=== PATIENT | female | born 1995 | race Caucasian/White ===

== ENCOUNTER 2016-08-20 09:25 | Inpatient (IN) | payer OTHER ==
[2016-08-20] VITALS (26 sets, daily range): BP systolic 106–140; BP diastolic 62–91
[~2016-08-20] VITALS: Ht 160 cm; Wt 100.0 kg
[2016-08-20] MEDS ORDERED: LACTATED RINGER'S 1000 ML IV STA (09:54)
[2016-08-20] MEDS ORDERED: LR 1,000 ML IV SCH (09:54)
[2016-08-20] MEDS ORDERED: BUTORPHANOL 2 MG/ML INJ (J0595) IV PRN (10:00)
[2016-08-20] MEDS ORDERED: OXYTOCIN DRIP 30 UNITS in APPROPRIATE DILUENT 1 EA IV SCH ×2 (10:00→20:38)
[2016-08-20] MEDS ORDERED: PROMETHAZINE INJ 25 MG/ML VIAL (J2550) IV PRN (10:00)
[2016-08-20 10:13] LABS: MEAN CORPUSCULAR HEMOGLOBIN 28.2 pg (27.0-33.0); MEAN CORPUSCULAR HGB CONC 34.2 g/dl (32.0-36.5); MEAN CORPUSCULAR VOLUME 82.2 fl (80.0-96.0); RED CELL DISTRIBUTION WIDTH 15.2 % (11.5-14.5); WHITE BLOOD COUNT 11.5 K/mm3 (4.0-10.0)
[2016-08-20] MEDS ORDERED: FENTANYL 2MCG/ML ROPIVACAINE 0.2% NACL 250 ML CADD As Ordered ONE (16:29)
[2016-08-20] MEDS ORDERED: IBUPROFEN 800 MG TAB PO PRN (20:30)
[2016-08-20] MEDS ORDERED: DOCUSATE SODIUM 100 MG CAP PO PRN (20:30)
[2016-08-20] MEDS ORDERED: MEASLES,MUMPS,RUBELLA VACCINE INJ (MMR-II) (90707) SC SCH (20:30)
[2016-08-20] MEDS ORDERED: RHOGAM 300 MCG (1500 IU) INJ (J2790) IM SCH (20:30)
[2016-08-20] MEDS ORDERED: DIBUCAINE 1% OINTMENT 30GM TOP PRN (20:30)
[2016-08-20] MEDS ORDERED: ACETAMINOPHEN 500 MG TAB PO PRN (20:30)
[2016-08-20] MEDS ORDERED: MOM 30ML SUSPENSION UDC PO PRN (20:30)
[2016-08-20] MEDS ORDERED: OXYTOCIN 30 UNITS IN 0.9% NaCl 500ML IV BAG (J2590) As Ordered ONE (20:33)
[2016-08-20] MEDS: METHYLERGONOVINE MALEATE 0.2 MG TAB PO SCH (21:00)
[2016-08-21] MEDS: METHYLERGONOVINE MALEATE 0.2 MG TAB PO SCH ×3 (03:58→17:45)
[2016-08-21 06:00] VITALS: BP 118/72
[2016-08-21] MEDS: PRENATAL VITAMIN TAB PO SCH (07:56)
--- NOTE | 2016-08-21 09:05 | HPE ---
DATE OF ADMISSION: 08/20/2016 20-year-old, 1, estimated date of delivery 08/19/2016 here at 40 weeks 1 day with reports of spontaneous rupture of membranes, clear fluid 0730 hours. Reports onset uterine cramping since. Denies bleeding. Fetus is active. Last normal menstrual period was unknown, thought to be 10/29/2015 for initial CELESTINA of 08/04/2016. She conceived when Depo-Provera injection was delayed. Sonogram at 8 weeks confirmed the date of 08/19/2016 and anatomy scan was within normal limits. ALLERGIES: She has no known drug allergies. MEDICAL AND SURGICAL: Noncontributory. FAMILY HISTORY: Cancer and diabetes. SOCIAL HISTORY: Single. Father of the baby and family supportive. Denies tobacco, alcohol or drugs. OBJECTIVE: Prepregnancy weight 180, total weight gain 52 pounds. O+, antibody negative, rubella immune, VDRL, hepatitis B, hepatitis C, HIV, gonorrhea, Chlamydia all negative. 1-hour glucose 109. Group B strep is negative. No apparent distress. Vital signs are stable. Heart rate is regular. Respirations are easy. Abdomen is soft, gravid, longitudinal lie. Irregular contractions. heart 135, moderate variability with accelerations. Scant clear fluid per vagina. Sterile vaginal exam: 3 cm, 80%, -1 station, cephalic. ASSESSMENT: Primipara at term, category 1 tracing. PLAN: Admit. The patient is considering epidural. Anticipate normal spontaneous vaginal .
--- NOTE | 2016-08-21 13:21 | DN ---
DATE: 08/20/2016 Spontaneous rupture of membranes, clear fluid August 20 at 07:35. Pitocin augmentation provided. Epidural for labor coping. Fully dilated 1847, labored down, viable male delivered, GEM compound with posterior left arm at 1952. Spontaneous respirations. Transitioned on maternal abdomen. Cord doubly clamped and cut once pulsations ceased. were 9 and 9. Placenta, Baltazar and intact with three-vessel cord at 2001. Fundus slow to firm. IV Pitocin bolus commenced. Second-degree perineal laceration repaired with #3-0 Vicryl Rapide. Estimated blood loss 500 mL. Infant weight 7 pounds 4, 3300 grams. Sponge, sharp and instrument count correct. Mom and babe doing well.
[2016-08-21 18:00] VITALS: BP 126/70
[2016-08-21] MEDS ORDERED: METHYLERGONOVINE MALEATE 0.2 MG TAB PO PRN (21:00)
[2016-08-22 05:51] VITALS: BP 115/71
[2016-08-22] MEDS ORDERED: PRENTAB9 PO (07:03)
[2016-08-22] MEDS ORDERED: ACET50TA PO (07:04)
[2016-08-22] MEDS ORDERED: IBUP600T26 PO (07:05)
[2016-08-22] MEDS: PRENATAL VITAMIN TAB PO SCH (09:52)
== END 2016-08-22 10:10 | disposition home or self-care (01) | DRG 560 ==
LOC: M LDI 09:25 → M OBS 21:57
PROVIDERS: ADMIT Advanced Practice Midwife; ATTEND Advanced Practice Midwife
PROC: 10E0XZZ Delivery of Products of Conception, External Approach (ICD-10-PCS; principal; 2016-08-20)
PROC: 0KQM0ZZ Repair Perineum Muscle, Open Approach (ICD-10-PCS; 2016-08-20)
DX: O48.0 Post-term pregnancy (principal); O32.6XX0 Maternal care for compound presentation, not applicable or unspecified; Z3A.40 40 weeks gestation of pregnancy; O70.1 Second degree perineal laceration during delivery; Z37.0 Single live birth

== ENCOUNTER → 2017-02-02 | Day surgery (SDC) | payer OTHER ==
[~2017-02-02] VITALS: Ht 160 cm; Wt 107.5 kg
[~2017-02-02] MED LIST: ACET50TA PO; BACITRACIN OINT 30GM As Ordered ONE; DEPO150I IM; IBUP-1022 PO; KETOROLAC 60 MG/2 ML VIAL (J1885) As Ordered ONE; LIDOCAINE 2% INJ 100 MG/5 ML SDV (FOR ANES.) As Ordered ONE; LIDOCAINE W/EPINEPHRINE 1% 20ML VIAL As Ordered ONE; LR 1,000 ML IV ONE; LR 1,000 ML IV SCH; MIDAZOLAM INJ 2 MG/2 ML VIAL (J2250) As Ordered ONE; ONDANSETRON 4MG/2ML VIAL (J2405) As Ordered ONE; ONDANSETRON 4MG/2ML VIAL (J2405) IV PRN; PRENTAB9 PO; PROPOFOL 200 MG/20 ML VIAL As Ordered ONE; fentaNYL 100 MCG/2 ML INJECTION (J3010) As Ordered ONE; fentaNYL 100 MCG/2 ML INJECTION (J3010) IV PRN
[2017-02-02 12:54] LABS: CONTROL LINE UCG INT CTR LINE PRESENT
[2017-02-02 16:30] VITALS: BP 123/67
--- NOTE | 2017-02-03 09:11 | RO ---
DATE OF PROCEDURE: 02/02/2017 PREOPERATIVE DIAGNOSIS: Right scalp lesion. POSTOPERATIVE DIAGNOSIS: Right scalp lesion. PROCEDURE: Excision of a large right scalp lesion 4.5 x 2.5 cm with undermining of the skin edges for closure. SURGEON: Walt Hampton DO DRESSMAKING TEACHER: None. ANESTHESIA: Intravenous (IV) sedation 10 mL of 1% lidocaine with epinephrine local. COMPLICATIONS: None. INDICATIONS FOR PROCEDURE: The patient is a 21-year-old female, who presents with a large right scalp lesion. After careful history and physical, the recommendation is to proceed with excision of this in the operating room. The risks and benefits of the procedure not limited but including bleeding, infection, seroma formation, and need for further surgery discussed in detail with the patient. Informed consent was obtained, and the procedure was planned. DESCRIPTION OF PROCEDURE: The patient brought back to operating room #6. After sufficient sedation, the scalp was prepped and draped with Betadine. Next, time-out was done to confirm proper patient and proper procedure. Following that, 10 mL of 1% lidocaine was injected into the skin and subcutaneous tissues surrounding this lesion. Following that, a #15 blade scalpel was used to make an elliptical incision around the base of this. Electrocautery was then used to carefully dissect this entire mass circumferentially out. Once it was removed, electrocautery was used to control hemostasis. A #15 blade scalpel was used to undermine the skin edges for about 2 cm in all directions. The wound was then brought back together with interrupted 2-0 nylon sutures. The area was then cleaned and dried with saline and then covered with bacitracin, thus ending the procedure.
== END ==
LOC: M SDC 11:49
PROVIDERS: ATTEND Surgery
DX: D23.4 Other benign neoplasm of skin of scalp and neck (principal); Z79.3 Long term (current) use of hormonal contraceptives

== ENCOUNTER 2017-09-18 20:22 | Emergency (ER) | payer OTHER ==
[2017-09-19] MEDS: IBUPROFEN 600 MG TAB PO (00:24)
== END 2017-09-19 00:29 | disposition home or self-care (01) ==
LOC: M ED 09-19 00:29
DX: M25.572 Pain in left ankle and joints of left foot (principal); Z79.3 Long term (current) use of hormonal contraceptives; Z98.890 Other specified postprocedural states
CPT/HCPCS: 73610

== ENCOUNTER → 2017-10-12 | Outpatient (REF) | payer OTHER | LOC: M LAB REF 16:59 | DX: Z12.4 Encounter for screening for malignant neoplasm of cervix (principal) ==

== ENCOUNTER 2017-11-08 04:39 | Emergency (ER) | payer OTHER ==
[2017-11-08 05:46] LABS: BASO % 0.2 % (0.0-1.0); EOS # 0.4 10^3/uL (0.0-0.50); EOS % 3.5 % (0.0-3.0); HEMOGLOBIN 13.9 g/dl (12.0-16.0); IMMATURE GRANULOCYTE % 0.3 % (0-3.0); LYMPH # 2.5 10^3/uL (1.5-6.5); LYMPH % 19.4 % (24.0-44.0); MEAN CORPUSCULAR HEMOGLOBIN 26.5 pg (27.0-33.0); MEAN CORPUSCULAR HGB CONC 33.1 g/dl (32.0-36.5); MONO # 0.5 10^3/uL (0.0-0.8); MONO % 4.1 % (0.0-5.0); NEUTROPHILS # 9.2 10^3/uL (1.8-7.7); NEUTROPHILS % 72.5 % (36.0-66.0); PLATELET COUNT, AUTOMATED 380 10^3/uL (150-450); RED BLOOD COUNT 5.25 10^6/uL (4.00-5.40); RED CELL DISTRIBUTION WIDTH 14.6 % (11.5-14.5); WHITE BLOOD COUNT 12.7 10^3/uL (4.0-10.0)
[2017-11-08] MEDS: NS 1,000 ML IV (05:47)
[2017-11-08 05:59] LABS: CONTROL LINE HCG INT CTR LINE PRESENT; HCG, SERUM QUALITATIVE NEGATIVE (NEGATIVE)
[2017-11-08 06:06] LABS: ALBUMIN 3.5 GM/DL (3.2-5.2); ALBUMIN/GLOBULIN RATIO 0.73 (1.00-1.93); ALKALINE PHOSPHATASE 83 U/L (45-117); ALT/SGPT 30 U/L (12-78); ANION GAP 8 MEQ/L (8-16); AST/SGOT 10 U/L (7-37); BILIRUBIN,DIRECT 0.2 MG/DL (0.0-0.2); BILIRUBIN,TOTAL 0.4 MG/DL (0.2-1.0); BLOOD UREA NITROGEN 15 MG/DL (7-18); CARBON DIOXIDE LEVEL 21 MEQ/L (21-32); CHLORIDE LEVEL 114 MEQ/L (98-107); CREATININE FOR GFR 0.64 MG/DL (0.55-1.30); GLOMERULAR FILTRATION RATE > 60.0 (>60); GLUCOSE, FASTING 117 MG/DL (70-100); LIPASE 77 U/L (73-393); POTASSIUM SERUM 3.6 MEQ/L (3.5-5.1); SODIUM LEVEL 143 MEQ/L (136-145); TOTAL PROTEIN 8.3 GM/DL (6.4-8.2)
[2017-11-08 06:06] LABS: LACTIC ACID SEPSIS PROTOCOL 1.2 MMOL/L (0.4-2.0)
[2017-11-08 07:08] LABS: KETONE, URINE AUTO RFX NEGATIVE (NEGATIVE); MUCUS, URINE RFX SMALL (NEGATIVE); NITRITE, URINE AUTO RFX NEGATIVE (NEGATIVE); RBC, URINE AUTO RFX 13 /HPF (0-3); SPECIFIC GRAVITY UR AUTO RFX 1.014 (1.002-1.035); SQUAM EPITHELIAL CELL UR AURFX 3 /HPF (0-6)
[2017-11-08 07:11] LABS: LEUKOCYTE ESTERASE UR AUTO RFX 3+ (NEGATIVE); WBC, URINE AUTO RFX 32 /HPF (0-3)
== END 2017-11-08 07:58 | disposition home or self-care (01) ==
LOC: M ED 04:39
DX: K52.9 Noninfective gastroenteritis and colitis, unspecified (principal); Z87.42 Personal history of other diseases of the female genital tract; Z79.3 Long term (current) use of hormonal contraceptives
CPT/HCPCS: 83690

== ENCOUNTER → 2019-10-08 | Outpatient (REF) | payer OTHER ==
[~2019-10-08] MED LIST changes: -ACET50TA PO; -BACITRACIN OINT 30GM As Ordered ONE; -KETOROLAC 60 MG/2 ML VIAL (J1885) As Ordered ONE; -LIDOCAINE 2% INJ 100 MG/5 ML SDV (FOR ANES.) As Ordered ONE; -LIDOCAINE W/EPINEPHRINE 1% 20ML VIAL As Ordered ONE; -LR 1,000 ML IV ONE; -LR 1,000 ML IV SCH; +MAPA500T2 PO; -MIDAZOLAM INJ 2 MG/2 ML VIAL (J2250) As Ordered ONE; -ONDANSETRON 4MG/2ML VIAL (J2405) As Ordered ONE; -ONDANSETRON 4MG/2ML VIAL (J2405) IV PRN; -PROPOFOL 200 MG/20 ML VIAL As Ordered ONE; -fentaNYL 100 MCG/2 ML INJECTION (J3010) As Ordered ONE; -fentaNYL 100 MCG/2 ML INJECTION (J3010) IV PRN
[2019-10-08 20:33] LABS: INFLUENZA A AMPLIFICATION NEGATIVE (NEGATIVE); INFLUENZA B AMPLIFICATION NEGATIVE (NEGATIVE)
== END ==
LOC: M LAB 19:56
PROVIDERS: ATTEND Physician Assistant
DX: J11.1 Influenza due to unidentified influenza virus with other respiratory manifestations (principal)

== ENCOUNTER → 2019-11-05 | Outpatient (REF) | payer OTHER | LOC: M SFHCWAGY 16:59 | PROVIDERS: ATTEND Advanced Practice Midwife | DX: Z12.4 Encounter for screening for malignant neoplasm of cervix (principal) ==

== ENCOUNTER → 2019-12-12 | Outpatient (CLI) | payer OTHER ==
[~2019-12-12] MED LIST changes: +ACET-907 PO; +PREN29TA4 PO
--- NOTE | 2019-12-12 14:31 | REP ---
OB ULTRASOUND: Real-time sonographic evaluation of gravid uterus performed. There is a single living intrauterine gestation. The estimated gestational age 19 weeks 6 days based on today's ultrasound measurements, EDC 05/01/2020. BPD 47 mm = 20 weeks 1 day HC 173 mm = 19 weeks 6 days AC 137 mm = 19 weeks 1 day Femur length 34 mm = 20 weeks 4 days HC/AC ratio 1.26, normal range 1.06-1.25. Estimated weight 316 grams, 48th percentile. Cervix closed and measures 3.1 cm in length. heart rate 153 beats per minute. SEEN/GROSSLY UNREMARKABLE Lateral ventricles Yes Posterior fossa Yes Upper lip Yes Four-chamber heart Yes LVOT Yes RVOT Yes Stomach Yes Cord insertion Yes Three vessel cord Yes Kidneys Yes Bladder Yes Spine No position: Vertex. Placenta: Anterior and grade 1 with no previa or abruption. Amniotic fluid: Within normal limits.
== END ==
LOC: M WHC 09:45
PROVIDERS: ATTEND Advanced Practice Midwife
DX: O99.212 Obesity complicating pregnancy, second trimester (principal); E66.9 Obesity, unspecified; Z3A.19 19 weeks gestation of pregnancy

== ENCOUNTER 2019-12-14 14:23 | Emergency (ER) | payer OTHER ==
[~2019-12-14] VITALS: Ht 160 cm; Wt 103.5 kg
[~2019-12-14 14:23] MED LIST changes: -ACET-907 PO; -PREN29TA4 PO
[2019-12-14] MEDS ORDERED: PREN29TA4 PO (14:31)
[2019-12-14 15:09] LABS: BASO % 0.3 % (0.0-1.0); EOS # 0.3 10^3/uL (0.0-0.5); EOS % 2.4 % (0.0-3.0); HEMATOCRIT 33.3 % (36.0-47.0); HEMOGLOBIN 11.2 g/dl (12.0-15.5); LYMPH # 2.8 10^3/uL (1.5-5.0); LYMPH % 19.5 % (24.0-44.0); MEAN CORPUSCULAR HEMOGLOBIN 29.1 pg (27.0-33.0); MEAN CORPUSCULAR HGB CONC 33.6 g/dl (32.0-36.5); MEAN CORPUSCULAR VOLUME 86.5 fl (80.0-96.0); MONO # 0.6 10^3/uL (0.0-0.8); MONO % 3.9 % (0.0-5.0); NEUTROPHILS # 10.6 10^3/uL (1.5-8.5); NEUTROPHILS % 73.4 % (36.0-66.0); PLATELET COUNT, AUTOMATED 324 10^3/uL (150-450); RED BLOOD COUNT 3.85 10^6/uL (4.00-5.40); WHITE BLOOD COUNT 14.4 10^3/uL (4.0-10.0)
[2019-12-14] MEDS ORDERED: ACET-907 PO (15:33)
[2019-12-14 15:45] LABS: ERYTHROCYTE SEDIMENTATION RATE 48 mm/hr (0-20)
[2019-12-14 15:48] LABS: ALBUMIN 2.7 GM/DL (3.2-5.2); ALT/SGPT 18 U/L (12-78); BILIRUBIN,TOTAL 0.2 MG/DL (0.2-1.0); BLOOD UREA NITROGEN 9 MG/DL (7-18); C REACTIVE PROTEIN QUANTITATIV 1.82 MG/DL (0.00-0.30); CALCIUM LEVEL 8.4 MG/DL (8.5-10.1); CARBON DIOXIDE LEVEL 20 MEQ/L (21-32); CHLORIDE LEVEL 111 MEQ/L (98-107); CREATININE FOR GFR 0.63 MG/DL (0.55-1.30); GLOMERULAR FILTRATION RATE > 60.0 (>60); GLUCOSE, FASTING 86 MG/DL (70-100); POTASSIUM SERUM 3.9 MEQ/L (3.5-5.1); SODIUM LEVEL 142 MEQ/L (136-145); TOTAL PROTEIN 6.8 GM/DL (6.4-8.2)
[2019-12-14 16:25] VITALS: BP 129/81
== END 2019-12-14 16:26 | disposition home or self-care (01) ==
LOC: M ED 14:23
DX: O26.892 Other specified pregnancy related conditions, second trimester (principal); M25.472 Effusion, left ankle; M25.571 Pain in right ankle and joints of right foot; M25.572 Pain in left ankle and joints of left foot; G89.29 Other chronic pain; Z3A.29 29 weeks gestation of pregnancy; Z79.899 Other long term (current) drug therapy

== ENCOUNTER → 2019-12-18 | Outpatient (REF) | payer OTHER ==
[~2019-12-18] MED LIST changes: +ACET-907 PO; +PREN29TA4 PO
[2019-12-18 17:39] LABS: GLUCOSE CHALLENGE TEST 1 HOUR 105 MG/DL (LESS THAN 140)
[2019-12-18 17:44] LABS: HEMATOCRIT 37.3 % (36.0-47.0); HEMOGLOBIN 12.1 g/dl (12.0-15.5); MEAN CORPUSCULAR HEMOGLOBIN 28.6 pg (27.0-33.0); MEAN CORPUSCULAR HGB CONC 32.4 g/dl (32.0-36.5); MEAN CORPUSCULAR VOLUME 88.2 fl (80.0-96.0); PLATELET COUNT, AUTOMATED 370 10^3/uL (150-450); RED BLOOD COUNT 4.23 10^6/uL (4.00-5.40); WHITE BLOOD COUNT 16.2 10^3/uL (4.0-10.0)
[2019-12-18 19:33] LABS: HEMOGLOBIN A1c 4.3 %
[2019-12-19 10:33] LABS: HEPATITIS B SURFACE ANTIGEN NEGATIVE (NEGATIVE)
[2019-12-19 11:01] LABS: HIV 1&2 SCREEN CENTAUR NEGATIVE (NEGATIVE)
== END ==
LOC: M PLALAB 14:35
PROVIDERS: ATTEND Advanced Practice Midwife
DX: O99.211 Obesity complicating pregnancy, first trimester (principal); Z3A.00 Weeks of gestation of pregnancy not specified

== ENCOUNTER → 2019-12-25 | Outpatient (CLI) | payer OTHER ==
--- NOTE | 2019-12-26 03:06 | REP ---
Clinical: Anatomical evaluation. Comparison: 12/12/2019 . Findings: Examination demonstrates a single live intrauterine in cephalic presentation. motion is identified by technologist. Placenta is noted anterior and grade I without evidence for placenta previa or abruption. Amniotic fluid volume is normal. Cervix measures 3.1 cm in length and appears closed. No evidence for nuchal cord. Gestational age by LMP 21 weeks 2 days with CELESTINA 05/04/2020 . Gestational age by current measurements 21 weeks 3 days with CELESTINA 05/03/2020 . FHR equals 150 beats per minute. Estimated weight 440 grams ( 58th percentile). Anatomical assessment demonstrates normal structures including cranium, diaphragm, stomach, cord insertion/three-vessel cord, kidneys/bladder, and spine. Impression: single live intrauterine in cephalic presentation demonstrating appropriate interval growth. In conjunction with prior examination anatomical assessment is complete and normal.
== END ==
LOC: M WHC 10:30
PROVIDERS: ATTEND Advanced Practice Midwife
DX: O99.212 Obesity complicating pregnancy, second trimester (principal)

== ENCOUNTER → 2020-02-12 | Outpatient (REF) | payer OTHER ==
[2020-02-12 15:33] LABS: HEMATOCRIT 36.4 % (36.0-47.0); HEMOGLOBIN 11.5 g/dl (12.0-15.5); MEAN CORPUSCULAR HEMOGLOBIN 28.5 pg (27.0-33.0); MEAN CORPUSCULAR HGB CONC 31.6 g/dl (32.0-36.5); MEAN CORPUSCULAR VOLUME 90.3 fl (80.0-96.0); PLATELET COUNT, AUTOMATED 337 10^3/uL (150-450); RED BLOOD COUNT 4.03 10^6/uL (4.00-5.40); WHITE BLOOD COUNT 14.3 10^3/uL (4.0-10.0)
[2020-02-12 19:43] LABS: CHLAMYDIA DNA AMPLIFICATION NEGATIVE (NEGATIVE); GC DNA AMPLIFICATION NEGATIVE (NEGATIVE)
== END ==
LOC: M PLALAB 11:39
PROVIDERS: ATTEND Advanced Practice Midwife
DX: O99.212 Obesity complicating pregnancy, second trimester (principal)

== ENCOUNTER → 2020-04-08 | Outpatient (REF) | payer OTHER | LOC: M WHC 14:30 | PROVIDERS: ATTEND Advanced Practice Midwife | DX: Z34.83 Encounter for supervision of other normal pregnancy, third trimester (principal); Z36.85 Encounter for antenatal screening for Streptococcus B ==

== ENCOUNTER → 2020-04-20 | Outpatient (CLI) | payer OTHER ==
--- NOTE | 2020-05-12 10:36 | REP ---
LIMITED OBSTETRICAL ULTRASOUND CLINICAL: Growth discrepancy. COMPARISON: 12/25/2019. TECHNIQUE: Transabdominal obstetrical ultrasound with color Doppler evaluation. FINDINGS: Ultrasound examination demonstrates a single live intrauterine in cephalic presentation. Placenta noted anteriorly and grade 3 without evidence for placenta previa or abruption. Amniotic fluid volume is normal. Amniotic fluid index (AUGUSTINE) equals 13.9 cm. Cervix measures 3 cm in length and appears closed. heart rate 139 beats per minute. MEASUREMENTS: BPD 93 mm 38 weeks 1 day HC 333 mm 38 weeks 0 days AC 316 mm 35 weeks 4 days FL 74 mm 37 weeks 5 days HL 66 mm 38 weeks 4 days Estimated weight 2988 grams (28th percentile). Estimated age by current measurements 37 weeks 3 days. IMPRESSION: Single live advanced gestation in cephalic presentation demonstrating appropriate estimated weight and growth. MTDD
== END ==
LOC: M WHC 14:27
PROVIDERS: ATTEND Advanced Practice Midwife
DX: O26.843 Uterine size-date discrepancy, third trimester (principal)

== ENCOUNTER 2020-04-28 14:04 | Inpatient (IN) | payer OTHER ==
[~2020-04-28] VITALS: Ht 160 cm; Wt 105.9 kg
[2020-04-28 14:25] VITALS: BP 128/77
[2020-04-28 15:27] LABS: HEMOGLOBIN 10.9 g/dl (12.0-15.5); MEAN CORPUSCULAR HEMOGLOBIN 28.9 pg (27.0-33.0); MEAN CORPUSCULAR VOLUME 87.5 fl (80.0-96.0); PLATELET COUNT, AUTOMATED 275 10^3/uL (150-450); RED BLOOD COUNT 3.77 10^6/uL (4.00-5.40); WHITE BLOOD COUNT 12.5 10^3/uL (4.0-10.0)
[2020-04-28 15:44] VITALS: BP 124/71
[2020-04-28] MEDS: miSOPROStol 50 MCG 1/2 TAB (S0191) PO SCH ×2 (15:45→20:16)
[2020-04-28 15:59] LABS: ALT/SGPT 13 U/L (12-78); CREATININE FOR GFR 0.54 MG/DL (0.55-1.30); GLOMERULAR FILTRATION RATE > 60.0 (>60); LDH LACTATE DEHYDROGENASE 142 U/L (84-246); URIC ACID 4.2 MG/DL (2.6-6.0)
[2020-04-28 16:04] LABS: BILIRUBIN,TOTAL < 0.1 MG/DL (0.2-1.0)
[2020-04-28 17:46] VITALS: BP 134/80
[2020-04-28 21:20] VITALS: BP 143/79
[2020-04-29] VITALS (17 sets, daily range): BP systolic 121–145; BP diastolic 63–105
[2020-04-29] MEDS: miSOPROStol 50 MCG 1/2 TAB (S0191) PO SCH (00:38)
[2020-04-29] MEDS ORDERED: CALCIUM CARBONATE 500 MG CHEW U/D PO PRN (00:45)
[2020-04-29] MEDS ORDERED: BUTORPHANOL 2 MG/ML INJ (J0595) IV ONE (03:00)
[2020-04-29] MEDS ORDERED: PROMETHAZINE INJ 25 MG/ML VIAL (J2550) IV ONE (03:00)
[2020-04-29] MEDS ORDERED: LR 1,000 ML IV SCH (05:23)
[2020-04-29] MEDS ORDERED: OXYTOCIN DRIP 30 UNITS in IV 1 EA IV SCH ×2 (05:30→08:05)
[2020-04-29 06:20] LABS: HEMATOCRIT 34.7 % (36.0-47.0); HEMOGLOBIN 11.2 g/dl (12.0-15.5); MEAN CORPUSCULAR HEMOGLOBIN 28.4 pg (27.0-33.0); MEAN CORPUSCULAR HGB CONC 32.3 g/dl (32.0-36.5); MEAN CORPUSCULAR VOLUME 87.8 fl (80.0-96.0); PLATELET COUNT, AUTOMATED 262 10^3/uL (150-450); RED BLOOD COUNT 3.95 10^6/uL (4.00-5.40); WHITE BLOOD COUNT 15.5 10^3/uL (4.0-10.0)
[2020-04-29] MEDS ORDERED: FENTANYL 2MCG/ML ROPIVACAINE 0.2% IN 0.9% NACL 100ML IVBAG As Ordered ONE ×2 (06:34→06:35)
[2020-04-29] MEDS ORDERED: OXYTOCIN 30 UNITS IN 0.9% NaCl 500ML IV BAG (J2590) As Ordered ONE (07:32)
[2020-04-29] MEDS ORDERED: FENTANYL/ROPIVACAINE/NACL BAG 100 ML EPIDURAL SCH (08:00)
[2020-04-29] MEDS ORDERED: ONDANSETRON 4MG/2ML VIAL IV PRN (08:00)
[2020-04-29] MEDS ORDERED: LACTATED RINGER'S 1000 ML IV PRN (08:00)
[2020-04-29] MEDS ORDERED: EPIDURAL/PCA KEYS XX PRN (08:00)
[2020-04-29] MEDS ORDERED: NALOXONE INJ 0.4MG/1ML VIAL (J2310 PER 1MG) IV PRN (08:00)
[2020-04-29] MEDS ORDERED: ePHEDrine SULFATE 25 MG/5 ML(5MG/ML) SYRINGE IV PRN (08:00)
[2020-04-29] MEDS ORDERED: diphenhydrAMINE 50MG/ML VIAL (J1200) IV PRN (08:00)
[2020-04-29] MEDS ORDERED: REFRIGERATOR IV KEYS XX PRN (08:00)
[2020-04-29] MEDS ORDERED: EPIDURAL COMMENT XX SCH (08:00)
[2020-04-29] MEDS ORDERED: ACETAMINOPHEN 500 MG TAB PO PRN (08:15)
[2020-04-29] MEDS ORDERED: DOCUSATE SODIUM 100 MG CAP PO PRN (08:15)
[2020-04-29] MEDS ORDERED: IBUPROFEN 800 MG TAB PO PRN (08:15)
[2020-04-29] MEDS ORDERED: ANUSOL HC CREAM 30GM TOP PRN (08:15)
[2020-04-29] MEDS ORDERED: DIBUCAINE 1% OINTMENT 30GM TOP PRN (08:15)
[2020-04-29] MEDS ORDERED: MOM 30ML SUSPENSION UDC PO PRN (08:15)
[2020-04-29] MEDS ORDERED: METHYLERGONOVINE MALEATE 0.2 MG TAB PO PRN (08:15)
[2020-04-29] MEDS ORDERED: ACETAMINOPHEN TAB 650MG DOSE (2X325MG) PO PRN (08:15)
[2020-04-29] MEDS ORDERED: RHOGAM 300 MCG (1500 IU) INJ (J2790) IM SCH (08:15)
[2020-04-29] MEDS ORDERED: MEASLES,MUMPS,RUBELLA VACCINE INJ (MMR-II) (90707) SC SCH (08:15)
[2020-04-29] MEDS ORDERED: IBUPROFEN 600MG TAB PO PRN (08:15)
[2020-04-29] MEDS: PRENATAL VITAMINS CHEWABLE TABLET PO SCH (09:56)
[2020-04-30 06:00] VITALS: BP 132/71
--- NOTE | 2020-04-30 07:30 | IPNPDOC ---
Progress Note Date of Service: Apr 30, 2020 Day#: 1 Progress Note SUBJECT: Doing well without complaints. Ambulating, voiding and pain is well-c ontrolled. Reports minimal lochia. OBJECTIVE: VITAL SIGNS: Within normal limits, afebrile. Alert and oriented times three. Abdomen: Fundus firm at U-2. Soft, NTTP. Ext: neg calf tenderness. ASSESSMENT: day #1 status post normal spontaneous vaginal delivery. Recovering in stable condition. PLAN: 1. Continue routine care 2. Discharge plans for tomorrow VS, I&O, 24H, Fishbone Vital Signs/I&O Vital Signs Date Time Temp Pulse Resp B/P (MAP) Pulse Ox O2 Delivery O2 Flow Rate FiO2 04/30/20 06:00 96.8 84 18 132/71 (91) I&O- Last 24 Hours up to 6 AM 04/30/20 05:59 Intake Total 1120 ml Output Total 1700 ml Balance -580 ml Laboratory Data 24H LABS Laboratory Tests 2 04/29/20 07:56: Serology Scanned Report Hepatitis B Testing CINDI PABLO MD. Apr 30, 2020 07:30
[2020-04-30] MEDS: PRENATAL VITAMINS CHEWABLE TABLET PO SCH (08:40)
== END 2020-04-30 18:00 | disposition home or self-care (01) | DRG 541 ==
LOC: M LDI 14:04 → M OBS 04-29 10:40
PROVIDERS: ADMIT Advanced Practice Midwife; ATTEND Advanced Practice Midwife
PROC: 3E0P7GC Introduction of Other Therapeutic Substance into Female Reproductive, Via Natural or Artificial Opening (ICD-10-PCS; 2020-04-28)
PROC: 10E0XZZ Delivery of Products of Conception, External Approach (ICD-10-PCS; principal; 2020-04-29)
PROC: 0HQ9XZZ Repair Perineum Skin, External Approach (ICD-10-PCS; 2020-04-29)
PROC: 10D17ZZ Extraction of Products of Conception, Retained, Via Natural or Artificial Opening (ICD-10-PCS; 2020-04-29)
DX: O13.4 Gestational [pregnancy-induced] hypertension without significant proteinuria, complicating childbirth (principal); O69.81X0 Labor and delivery complicated by cord around neck, without compression, not applicable or unspecified; Z3A.39 39 weeks gestation of pregnancy; O70.0 First degree perineal laceration during delivery; Z37.0 Single live birth; O73.0 Retained placenta without hemorrhage

== ENCOUNTER 2020-10-31 12:29 | Emergency (ER) | payer OTHER ==
[~2020-10-31] VITALS: Ht 160 cm; Wt 103.2 kg
[2020-10-31 13:06] LABS: BASO % 0.3 % (0.0-1.0); EOS # 0.6 10^3/uL (0.0-0.5); EOS % 5.5 % (0.0-3.0); HEMATOCRIT 46.1 % (36.0-47.0); HEMOGLOBIN 14.5 g/dl (12.0-15.5); LYMPH # 3.3 10^3/uL (1.5-5.0); LYMPH % 27.9 % (24.0-44.0); MEAN CORPUSCULAR HEMOGLOBIN 26.3 pg (27.0-33.0); MEAN CORPUSCULAR HGB CONC 31.5 g/dl (32.0-36.5); MEAN CORPUSCULAR VOLUME 83.5 fl (80.0-96.0); MONO # 0.4 10^3/uL (0.0-0.8); MONO % 3.4 % (2.0-8.0); NEUTROPHILS # 7.3 10^3/uL (1.5-8.5); NEUTROPHILS % 62.7 % (36.0-66.0); PLATELET COUNT, AUTOMATED 451 10^3/uL (150-450); RED BLOOD COUNT 5.52 10^6/uL (4.00-5.40); WHITE BLOOD COUNT 11.7 10^3/uL (4.0-10.0)
[2020-10-31] MEDS ORDERED: GI COCKTAIL 50ML BTL(HYOSCYAMINE/MAALOX/LIDOCAINE VISCOUS)(1:3:1) PO ONE (13:10)
[2020-10-31 13:30] LABS: ALBUMIN 3.6 GM/DL (3.2-5.2); BILIRUBIN,DIRECT 0.1 MG/DL (0.0-0.2); BILIRUBIN,TOTAL 0.3 MG/DL (0.2-1.0); TOTAL PROTEIN 8.2 GM/DL (6.4-8.2)
--- NOTE | 2020-10-31 14:17 | REP ---
INDICATION: RUQ pain. The right kidney measures 12.2 x 5.4 x 3.5 cm and is normal size. COMPARISON: None. TECHNIQUE: Multiple sonographic images of the abdominal right upper quadrant. FINDINGS: There are multiple gallbladder calculi. There is no gallbladder wall thickening or pericholecystic fluid. There is no intrahepatic or extrahepatic biliary duct dilatation. The common biliary duct measures 4.4 mm in diameter. The hepatic parenchyma is hyperechoic compatible with hepato steatosis. There are no hepatic masses or nodules. The pancreas is obscured by bowel gas. The right kidney measures 12.2 x 5.4 x 3.5 cm and is normal size. There is no right renal calculus, hydronephrosis, solid mass or cystic mass. IMPRESSION: Cholelithiasis without ultrasound evidence of acute cholecystitis or biliary duct dilatation. <Electronically signed by Walt Wiseman > 10/31/20 [id number]
[2020-10-31 14:53] VITALS: BP 143/92
== END 2020-10-31 14:54 | disposition home or self-care (01) ==
LOC: M ED 12:29
DX: K80.51 Calculus of bile duct without cholangitis or cholecystitis with obstruction (principal); F17.200 Nicotine dependence, unspecified, uncomplicated

== ENCOUNTER → 2020-12-08 | Outpatient (CLI) | payer OTHER | LOC: M LABSMTC 09:39 | PROVIDERS: ATTEND Anesthesiology | DX: Z01.818 Encounter for other preprocedural examination (principal); Z11.52 Encounter for screening for COVID-19 ==

== ENCOUNTER 2020-12-13 08:12 | Day surgery (SDC) | payer OTHER ==
[~2020-12-13] VITALS: Ht 160 cm; Wt 103.4 kg
[~2020-12-13 08:12] MED LIST changes: +LIDOCAINE 1% MDV 20ML VIAL SQ PRN; +LR 1,000 ML IV ONE
[2020-12-13] MEDS ORDERED: BUPIVACAINE/EPIN 0.25% 30 ML VIAL As Ordered ONE (09:42)
[2020-12-13] MEDS ORDERED: fentaNYL 100 MCG/2 ML INJECTION (J3010) As Ordered ONE ×3 (09:52→11:27)
[2020-12-13] MEDS ORDERED: MIDAZOLAM INJ 2MG/2ML VIAL (J2250 PER 1MG) As Ordered ONE (09:53)
[2020-12-13] MEDS ORDERED: propofoL 200 MG/20 ML VIAL As Ordered ONE (09:54)
[2020-12-13] MEDS ORDERED: ACETAMINOPHEN 1000MG 100ML IV BTL (OFIRMEV) (J0131 PER 10MG) As Ordered ONE (09:55)
[2020-12-13] MEDS ORDERED: ROCURONIUM BROMIDE 50 MG/5 ML VIAL As Ordered ONE ×2 (09:56→10:51)
[2020-12-13] MEDS ORDERED: LIDOCAINE 2% 100MG/5ML SDV (FOR ANES.) As Ordered ONE (10:00)
[2020-12-13] MEDS ORDERED: dexameTHASONE 4 MG/ML 1ML VIAL (J1100 PER 1MG) As Ordered ONE (10:48)
[2020-12-13] MEDS ORDERED: SUGAMMADEX SODIUM 500 MG/5 ML VIAL (BRIDION) As Ordered ONE (10:56)
[2020-12-13] MEDS: fentaNYL 100 MCG/2 ML INJECTION (J3010) IV PRN ×3 (11:30→11:42)
[2020-12-13] MEDS ORDERED: HYDROMORPHONE HCL 0.5 MG/ 0.5 ML SYRINGE (J1170 PER 1) IV PRN (11:50)
[2020-12-13] MEDS ORDERED: NORCO, ANEXSIA 5/325MG TABLET (HYDROcodone/ACETAMINOPHEN) PO PRN (11:50)
[2020-12-13] MEDS ORDERED: oxyCODONE 5MG TAB PO PRN (11:50)
[2020-12-13] MEDS ORDERED: LR 1,000 ML IV SCH (11:50)
[2020-12-13] MEDS ORDERED: ONDANSETRON 4MG/2ML VIAL IV PRN (11:50)
--- NOTE | 2020-12-13 12:15 | RO ---
OPERATIVE NOTE DATE OF OPERATION: 12/13/2020 PREOPERATIVE DIAGNOSIS: Symptomatic cholelithiasis. POSTOPERATIVE DIAGNOSIS: Symptomatic cholelithiasis. PROCEDURE: Robotic cholecystectomy. SURGEON: Walt Hampton DO SOIL TECHNOLOGIST: Peggy Minor ANESTHESIA: General. EBL: 5. COMPLICATIONS: None. INDICATIONS FOR PROCEDURE: The patient is a 25-year-old female who presents with right upper quadrant pain and found to have symptomatic cholelithiasis. Recommendation was to proceed with a robotic cholecystectomy. Risks and benefits of the procedure not limited to but including bleeding, infection, hernia, damage to surrounding structures and need for further surgery were discussed in detail with the patient. Informed consent was obtained and procedure was planned. DESCRIPTION OF PROCEDURE: The patient was brought back to operating room 7. After sufficient sedation, the abdomen was sterilely prepped and draped. Next, time out was done to confirm proper patient and proper procedure. Following that an 8 mm incision was made in the left upper quadrant, and the Veress needle was inserted. The abdomen was insufflated to 15 mmHg. Veress needle was then removed. An 8 mm Optiview port was used to gain access to the abdomen. Once the abdomen was entered, three more ports were placed across the right upper quadrant. The robot was then docked to the ports. The fundus of the gallbladder was elevated up towards the right shoulder. Cystic duct and cystic artery were carefully dissected free using combination of blunt and sharp dissection. Once they were both clearly identified they were both doubly clipped and cut. The gallbladder was then dissected free from the gallbladder fossa using electrocautery. Gallbladder was then brought out through the right lateral port site in the 5 mm Endo Catch bag. Once the gallbladder was removed, the fascia at the right lateral port site was closed from peritoneal side using running 2-0 V-Loc suture. Once that was completed the abdomen was desufflated. Skin incisions were closed with 4-0 Vicryl subcuticular sutures. The abdomen was cleaned and dried. Steri-Strips, 4 x 4 and tape were applied. This ended the procedure.
[2020-12-13 13:15] VITALS: BP 141/90
[2020-12-15] MEDS ORDERED: LR 1,000 ML IV SCH (14:45)
[2020-12-15] MEDS ORDERED: KETOROLAC 30 MG/ML 1ML VIAL IV PRN (14:45)
[2020-12-15] MEDS ORDERED: ONDANSETRON 4MG/2ML VIAL IV PRN (14:45)
[2020-12-15] MEDS ORDERED: AMPICILLIN SOD/SULBACTAM SOD 3 GM in D5W MINI-BAG PLUS 100 ML IV SCH (15:00)
== END 2020-12-13 13:15 | disposition home or self-care (01) ==
LOC: M SDC 08:12 → UNDOADMIN 12-15 14:10 → M OR 12-15 14:10
PROVIDERS: ATTEND Surgery
DX: K80.10 Calculus of gallbladder with chronic cholecystitis without obstruction (principal); F17.218 Nicotine dependence, cigarettes, with other nicotine-induced disorders
CPT/HCPCS: 47562; 81025; 88304; J0131; J1100; J2250; J3010; S2900

== ENCOUNTER 2020-12-15 03:03 | Inpatient (IN) | payer OTHER ==
[~2020-12-15] VITALS: Ht 160 cm; Wt 100.9 kg
[~2020-12-15 03:03] MED LIST changes: -LIDOCAINE 1% MDV 20ML VIAL SQ PRN; -LR 1,000 ML IV ONE
[2020-12-15] MEDS ORDERED: NS 500 ML IV ONE (03:35)
[2020-12-15 03:52] LABS: BASO % 0.3 % (0.0-1.0); EOS # 0.4 10^3/uL (0.0-0.5); EOS % 2.8 % (0.0-3.0); HEMATOCRIT 36.9 % (36.0-47.0); HEMOGLOBIN 11.8 g/dl (12.0-15.5); LYMPH # 3.1 10^3/uL (1.5-5.0); LYMPH % 24.6 % (24.0-44.0); MEAN CORPUSCULAR HEMOGLOBIN 26.6 pg (27.0-33.0); MEAN CORPUSCULAR VOLUME 83.1 fl (80.0-96.0); MONO # 0.7 10^3/uL (0.0-0.8); MONO % 5.3 % (2.0-8.0); NEUTROPHILS # 8.3 10^3/uL (1.5-8.5); NEUTROPHILS % 66.7 % (36.0-66.0); PLATELET COUNT, AUTOMATED 350 10^3/uL (150-450); RED BLOOD COUNT 4.44 10^6/uL (4.00-5.40); WHITE BLOOD COUNT 12.4 10^3/uL (4.0-10.0)
[2020-12-15 04:40] LABS: HCG, SERUM QUALITATIVE NEGATIVE (NEGATIVE)
[2020-12-15 04:41] LABS: ALBUMIN 3.3 GM/DL (3.2-5.2); ALT/SGPT 45 U/L (12-78); BILIRUBIN,DIRECT < 0.1 MG/DL (0.0-0.2); BILIRUBIN,TOTAL 0.1 MG/DL (0.2-1.0); BLOOD UREA NITROGEN 14 MG/DL (7-18); CALCIUM LEVEL 8.6 MG/DL (8.5-10.1); CARBON DIOXIDE LEVEL 26 MEQ/L (21-32); CHLORIDE LEVEL 110 MEQ/L (98-107); CREATININE FOR GFR 0.54 MG/DL (0.55-1.30); GLOMERULAR FILTRATION RATE > 60.0 (>60); GLUCOSE, FASTING 105 MG/DL (70-100); LIPASE 39 U/L (73-393); POTASSIUM SERUM 3.4 MEQ/L (3.5-5.1); SODIUM LEVEL 142 MEQ/L (136-145); TOTAL PROTEIN 7.1 GM/DL (6.4-8.2)
[2020-12-15] MEDS ORDERED: ISOVUE-370 76% 100ML VIAL As Ordered ONE (04:43)
--- NOTE | 2020-12-15 05:33 | REPVR ---
PROCEDURE INFORMATION: Exam: CTA Chest With Contrast Exam date and time: 12/15/2020 4:50 AM Age: 25 years old Clinical indication: Chest pain; Prior surgery; Surgery date: 3-7 days post-operative; Surgery type: Gall bladder surgery 12/13/20; Additional info: Postop pleuritic chest pain, R/O pe TECHNIQUE: Imaging protocol: Computed tomographic angiography of the chest with contrast. 3D rendering (Not supervised by radiologist): MIP and/or 3D reconstructed images were created by the technologist. Radiation optimization: All CT scans at this facility use at least one of these dose optimization techniques: automated exposure control; mA and/or kV adjustment per patient size (includes targeted exams where dose is matched to clinical indication); or iterative reconstruction. Contrast material: ISOVUE 370; Contrast volume: 100 ml; Contrast route: INTRAVENOUS (IV); COMPARISON: No relevant prior studies available. FINDINGS: Pulmonary arteries: The pulmonary arteries are not enlarged. No filling defects are seen to indicate an acute pulmonary embolism. Aorta: There is no thoracic aortic aneurysm or evidence of dissection. Lungs: There is a calcified granuloma in the right upper lobe. There is minimal dependent density most consistent with subsegmental atelectasis. Pleural spaces: No pleural effusions or pneumothorax identified. Heart: The heart is normal in size. Lymph nodes: There is a calcified right hilar lymph node. No lymphadenopathy is seen. Liver: There is a diffuse decrease in hepatic parenchymal density, consistent with fatty infiltration. The liver is not fully included in the field of view. Bones/joints: No suspicious osseous lesions. No acute fractures. Schmorl's nodes and anterior endplate spurs are seen in the lower thoracic spine. Soft tissues: The soft tissues appear unremarkable. IMPRESSION: 1. No evidence of acute pulmonary embolism. 2. Fatty liver. Electronically signed by: Aspen Olivares On 12/15/2020 05:32:45 AM
[2020-12-15] MEDS ORDERED: ONDANSETRON 4MG/2ML VIAL IV ONE (05:40)
[2020-12-15] MEDS: MORPHINE 2 MG/ML 1ML VIAL (J2270) IV PRN ×2 (05:45→07:40)
--- NOTE | 2020-12-15 05:45 | REPVR ---
PROCEDURE INFORMATION: Exam: CT Abdomen And Pelvis With Contrast Exam date and time: 12/15/2020 4:50 AM Age: 25 years old Clinical indication: Abdominal pain; Prior surgery; Surgery date: 3-7 days post-operative; Surgery type: Gallbladder removed 12/13/20; Additional info: Abdominal pain- post op TECHNIQUE: Imaging protocol: Computed tomography of the abdomen and pelvis with contrast. Radiation optimization: All CT scans at this facility use at least one of these dose optimization techniques: automated exposure control; mA and/or kV adjustment per patient size (includes targeted exams where dose is matched to clinical indication); or iterative reconstruction. Contrast material: ISOVUE 370; Contrast volume: 100 ml; Contrast route: INTRAVENOUS (IV); COMPARISON: GALLBLADDER US 10/31/2020 1:41 PM FINDINGS: Lungs: There is minimal bibasilar atelectasis. Liver: There is a diffuse decrease in density of the liver consistent with fatty liver. Relative hyperdensity around the gallbladder fossa is consistent with sparing. The liver is enlarged, measuring 26 cm craniocaudal. Gallbladder and bile ducts: There is stranding and a trace of fluid at the gallbladder fossa, not unexpected given recent prior surgery 2 days ago. There is no biliary ductal dilation. Pancreas: The pancreas is normal with no ductal dilation. Spleen: The spleen is normal. Adrenal glands: The adrenal glands are normal. Kidneys and ureters: The kidneys are unremarkable. There are no ureteral stones or hydronephrosis. Stomach and bowel: The small bowel appears unremarkable. There is no dilation or thickening of the colon. Appendix: The appendix is not specifically identified. Intraperitoneal space: There is a small amount of nonspecific free fluid in the pelvis. The density of the fluid ranges from 12-21 Hounsfield units, close to simple fluid attenuation. There is a small amount of free air in the upper abdomen anteriorly. Vasculature: No aortic aneurysm. Lymph nodes: No lymphadenopathy is seen. Urinary bladder: The bladder is unremarkable. No stones identified. Reproductive: The uterus is unremarkable. Bones/joints: No suspicious osseous lesions. No acute fractures. Soft tissues: There is gas in the anterior abdominal wall just above the umbilicus and in the left mid abdomen, likely residual from recent laparoscopic surgery. There is focal infiltration of the subcutaneous tissues and skin thickening in the right mid anterior abdominal wall, probably residual postoperative changes but correlate clinically for signs of cellulitis/wound infection. IMPRESSION: 1. Stranding and a trace of fluid at the gallbladder fossa, not unexpected given that the cholecystectomy was 2 days ago. 2. Small amount of free intraperitoneal air in the upper abdomen and small amount of fluid in the pelvis are also probably residual postoperative changes. 3. Focal infiltration of the subcutaneous tissues and skin thickening in the right mid abdominal wall, which may be postoperative changes but correlate clinically for any signs of cellulitis/wound infection. 4. Enlarged, fatty liver. Electronically signed by: Aspen Olivares On 12/15/2020 05:44:20 AM
[2020-12-15] MEDS ORDERED: KETOROLAC 30 MG/ML 1ML VIAL IV ONE (07:40)
[2020-12-15] MEDS ORDERED: NS 1,000 ML IV ONE (07:40)
--- NOTE | 2020-12-15 13:43 | REP ---
INDICATION: right upper quadrant pain, s/p cholecystectomy. COMPARISON: Comparison is made with CT study from December 15, 2020.. TECHNIQUE/RADIOTRACER AND DOSE: 6.3 mCi of Technetium-99m mebrofenin was injected and sequential anterior images are acquired. 65 minutes after the mebrofenin injection, the patient consumed 8 ounces Ensure and an additional 60 minutes of imaging was acquired. Regions of interest are plotted around the gallbladder. FINDINGS: The initial hepatocellular parenchymal uptake phase is normal and homogeneous. Intra- and extra-hepatic bile ducts are labeled by the 10-minute image. The gallbladder is surgically absent. At 15 minutes there is radiotracer along the inferior margin of the liver edge and in the gallbladder fossa. Subsequent images demonstrate labeling of the peritoneal cavity consistent with a bile leak. There is normal washout from the liver parenchyma. Most of the bile stream appears to be going into the peritoneal space. There is no definite gastrointestinal labeling. IMPRESSION: Findings consistent with bile leak from the region of the hepatic brian cholecystectomy bed. <Electronically signed by Red Reynoso > 12/15/20 [id number]
--- NOTE | 2020-12-15 14:37 | HPEPDOC ---
General Surgery H&P Date of Admission December 15, 2020 History and Physical CHIEF COMPLAINT: chest pain HISTORY OF PRESENT ILLNESS: Patient is a 25 F who had robotic assisted laparoscopic cholecystectomy by Dr. Hampton last Sunday (12/13/20) was discharged home and was doing well up until about 10 pm last night when she was awoken with severe sharp epigastric and midsternal chest pain. She denies any associated shortness of breath,nausea. She presented herself to the ED. Initial workup include CTA chest which ruled out a pulmonary embolus. CT abdomen and pelvis was also done which shows just postoperative changes. I was called regarding her and requested a HIDA scan to rule out a bile leak. This returned showing evidence for bile leakage. Thus she is admitted under my service. ALLERGIES: Please see below. HOME MEDICATIONS: Please see below. PAST MEDICAL HISTORY: 1. Denies any chronic medical problems. 2. cholelithiasis. PAST SURGICAL HISTORY: 1. robotic assisted laparoscopic cholecystectomy on 12/13/20. 2. . PERSONAL/SOCIAL HISTORY: [Denies smoking, alcohol use, or recreational drug use]. REVIEW OF SYSTEMS: GENERAL: [Denies chills, fatigue, fever, weight gain and weight loss]. HEENT: [Denies blurred vision and double vision. Denies ear symptoms. Denies hoarseness]. NECK: [Denies any neck pain]. CARDIOVASCULAR: [Denies chest pain and palpitations]. MUSCULOSKELETAL: [Denies arthralgias, back pain and thrombophlebitis]. SKIN: [Denies rash]. NEUROLOGIC: [Denies headache, stroke and transient ischemic attack]. PSYCHIATRIC: [Denies anxiety and depression]. ENDOCRINE: [Denies thyroid disease]. HEMATOLOGY/ONCOLOGY: [Denies any bleeding or clotting disorder]. HEART: [Denies any chest pains, palpitations, paroxysmal dyspnea, orthopnea]. PULMONARY: [Denies chronic cough, dyspnea and wheezing]. GASTROINTESTINAL: [Denies rectal bleeding, family history of colon cancer, constipation, diarrhea, dysphagia, heartburn and jaundice]. GENITOURINARY: [Denies dysuria, frequency, hematuria and nocturia]. ENDOCRINE: [Denies polydipsia, polyphagia, polyuria, heat or cold intolerance]. INFECTIOUS: [Denies any recent upper respiratory tract infection, UTI, need for use of antibiotics]. NUTRITION: [Reports good appetite]. PHYSICAL EXAMINATION: VITAL SIGNS: Please see below. GENERAL APPEARANCE: [Patient seen at bedside, appears comfortable]. [Awake, alert, oriented]. HEENT: [Normocephalic, atraumatic. [place] palpebral conjunctivae. Anicteric sclerae. Lips moist]. CHEST: [No chest wall abnormalities. Normal respiratory motion/effort]. NECK: [Supple. No thyromegaly. No lymphadenopathies]. LUNGS: [Lung sounds are clear to auscultation bilaterally. No wheezing appreciated]. HEART: [No chest wall abnormalities. Heart rate and rhythm are regular with no murmurs]. ABDOMEN: Abdomen is obese, nondistended. She has four port sites along the line below the umbilicus with a small amount of skin ecchymosis. Otherwise looks clean without any drainage. She is tender over right upper quadrant/subcostal area without rebound or guarding. SKIN: [Warm, moist]. EXTREMITIES: [Extremities have no deformities. No edema identified]. NEUROLOGICAL: . ANCILLARIES: . LABORATORY DATA: Please see below. MICROBIOLOGY: Please see below. IMAGING: . IMPRESSION AND PLAN: . Vital Signs Vital Signs Date Time Temp Pulse Resp B/P (MAP) Pulse Ox O2 Delivery O2 Flow Rate FiO2 12/15/20 10:30 57 18 205/95 (131) 97 Room Air 12/15/20 03:18 98.6 Laboratory Data Labs 24H Laboratory Tests 2 12/15/20 03:40: Immature Granulocyte % (Auto) 0.3, Neutrophils (%) (Auto) 66.7H, Lymphocytes (%) (Auto) 24.6, Monocytes (%) (Auto) 5.3, Eosinophils (%) (Auto) 2.8, Basophils (%) (Auto) 0.3, Neutrophils # (Auto) 8.3, Lymphocytes # (Auto) 3.1, Monocytes # (Auto) 0.7, Eosinophils # (Auto) 0.4, Basophils # (Auto) 0.0, Nucleated Red Blood Cells % (auto) 0.0, Anion Gap 6L, Glomerular Filtration Rate > 60.0, Lactic Acid Level 1.7, Calcium Level 8.6, Total Bilirubin 0.1L, Direct Bilirubin < 0.1, Aspartate Amino Transf (AST/SGOT) 26, Alanine Aminotransferase (ALT/SGPT) 45, Alkaline Phosphatase 66, Total Protein 7.1, Albumin 3.3, Albumin/Globulin Ratio 0.9L, Lipase 39L, Human Chorionic Gonadotropin, Qual NEGATIVE CBC/BMP Laboratory Tests 12/15/20 03:40 Home Medications No Active Prescriptions or Reported Meds Allergies Coded Allergies: No Known Allergies (Unverified , 12/13/20) RAFAEL BUSCH MD December 15, 2020 14:37
[2020-12-15] MEDS ORDERED: ONDANSETRON 4MG/2ML VIAL IV PRN ×2 (14:50→18:20)
[2020-12-15] MEDS ORDERED: ACETAMINOPHEN TAB 650MG DOSE (2X325MG) PO PRN (14:50)
[2020-12-15] MEDS ORDERED: PIPERACILLIN/TAZOBACTAM SOD 4.5 GM in D5W MINI-BAG PLUS 50 ML IV ONE (14:50)
[2020-12-15] MEDS: PANTOPRAZOLE 40MG VIAL (C9113 PER 1) IV SCH (15:26)
[2020-12-15] MEDS: LR 1,000 ML IV SCH (15:26)
[2020-12-15] MEDS: KETOROLAC 30 MG/ML 1ML VIAL IV PRN ×2 (15:26→16:10)
[2020-12-15] MEDS ORDERED: ISOVUE-300 61% 50ML VIAL As Ordered ONE (15:40)
[2020-12-15 15:55] LABS: RSV AMPLIFICATION NEGATIVE (NEGATIVE)
[2020-12-15] MEDS: AMPICILLIN SOD/SULBACTAM SOD 3 GM in D5W MINI-BAG PLUS 100 ML IV SCH ×2 (16:18→21:58)
[2020-12-15] MEDS ORDERED: MIDAZOLAM INJ 2MG/2ML VIAL (J2250 PER 1MG) As Ordered ONE (16:47)
[2020-12-15] MEDS ORDERED: LIDOCAINE 2% 100MG/5ML SDV (FOR ANES.) As Ordered ONE (16:47)
[2020-12-15] MEDS ORDERED: SUGAMMADEX SODIUM 500 MG/5 ML VIAL (BRIDION) As Ordered ONE (16:47)
[2020-12-15] MEDS ORDERED: ROCURONIUM BROMIDE 50 MG/5 ML VIAL As Ordered ONE (16:47)
[2020-12-15] MEDS ORDERED: dexameTHASONE 4 MG/ML 1ML VIAL (J1100 PER 1MG) As Ordered ONE (16:47)
[2020-12-15] MEDS ORDERED: ONDANSETRON 4MG/2ML VIAL As Ordered ONE (16:47)
[2020-12-15] MEDS ORDERED: KETOROLAC 60MG 2ML VIAL As Ordered ONE (16:47)
[2020-12-15] MEDS ORDERED: propofoL 200 MG/20 ML VIAL As Ordered ONE (16:47)
[2020-12-15] MEDS ORDERED: fentaNYL 100 MCG/2 ML INJECTION (J3010) As Ordered ONE (16:48)
--- NOTE | 2020-12-15 17:09 | CR.PDOC ---
General Date of Consultation: December 15, 2020 Referring Provider: RAFAEL BELL MD Attending Physician: SARKIS CARSON MD Consultation Referring physician / PCP : Dr. Bell, Reason for consult: Bile leak. HPI: 25 year old female patient with obesity BMI 39, who had robotic assisted laparoscopic cholecystectomy ON 12/13/20 is now admitted with epigastric pain and noted to have bile leak on HIDA scan. Patient reports she was doing well until about 10 pm last night when she started having severe sharp epigastric pain. She denies any associated shortness of breath, nausea or fever or chills. In ED patient was evaluated with CTA chest which ruled out a pulmonary embolus. CT abdomen and pelvis which shows just postoperative changes and HIDA scan which showed evidence for bile leakage. Patient reports movement worsening the abdominal pain. Patient was started on Antibiotics as per surgery. Pertinent negative GI symptoms: Patient denies nausea, vomiting, diarrhea, loss of appetite, early satiety or unintentional weight loss, hematemesis, melena or hematochezia. Patient reports regular bowel movements. 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 : No blood inurine, No burning sensation of the urine ENT: No ear discharge/ pain, No dysphagia. Eyes: No photophobia. Skin: No rash Home medications: reviewed. No Plavix and No anticoagulants Medical h/o: As above. Surgical h/o: As above. . Social h/o: Denies Alcohol, smoking, IVDA/ drugs. Family h/o of GI cancers - None Prior Endoscopies: None in [facility]. Prior GI evaluation: None in [facility] Exam: Vitals: reviewed General: Alert and oriented x 3, not in acute distress HEENT: No pallor, no icterus. Normal oropharynx, NO cervical lymphadenopathy. Chest: symmetric with bilateral air entry, CVS: S1, S2 heard, Abdomen: non-distended, soft, tenderness on deep papation in the right upper quadrant and epigastric area. no rigidity or guarding, no palpable masses, norm al bowel sounds heard. Rectal exam: Patient refused / Deferred at this time. Extremities: pulses palpable, no pedal edema, DRAWING KILN OPERATOR: no focal motor or sensory deficits. Moves all extremities Skin: no rash. Labs: reviewed. Imaging: none / reviewed. Impression: -- Acute onset upper abdominal pain with HIDA scan suggestive of Bile duct leak likely from Cystic duct stump. DDx-- less likely bile duct injury. ( based on HIDA scan, reviewed images with surgeon). Recommendations: -- Patient educated about the prior test results and all questions answered. -- NPO for now. -- IV antibiotics -- Will schedule for ERCP with CBD stent placement. Patient educated about the procedure, indications, risks (including but not limited to pancreatitis and its complications, bleeding, infection, perforation, anesthesia risks, including ), benefits and all alternatives including conservative measures without intervention. Patient verbalized understanding and consented for the procedure. -- Please follow operative note for post procedure recommendations. -- Plan of care educated to patient and patient verbalized understanding and agreed. All questions answered. -- Recommendations communicated to primary team. Patient to follow with PCP upon discharge for routine medical care. Vital Signs/I&O Vital Signs Date Time Temp Pulse Resp B/P (MAP) Pulse Ox O2 Delivery O2 Flow Rate FiO2 12/15/20 14:30 72 18 148/83 (104) 97 Room Air 12/15/20 11:45 98.5 Laboratory Data Labs 24H Laboratory Tests 2 12/15/20 03:40: Immature Granulocyte % (Auto) 0.3, Neutrophils (%) (Auto) 66.7H, Lymphocytes (%) (Auto) 24.6, Monocytes (%) (Auto) 5.3, Eosinophils (%) (Auto) 2.8, Basophils (%) (Auto) 0.3, Neutrophils # (Auto) 8.3, Lymphocytes # (Auto) 3.1, Monocytes # (Auto) 0.7, Eosinophils # (Auto) 0.4, Basophils # (Auto) 0.0, Nucleated Red Blood Cells % (auto) 0.0, Anion Gap 6L, Glomerular Filtration Rate > 60.0, Lactic Acid Level 1.7, Calcium Level 8.6, Total Bilirubin 0.1L, Direct Bilirubin < 0.1, Aspartate Amino Transf (AST/SGOT) 26, Alanine Aminotransferase (ALT/SGPT) 45, Alkaline Phosphatase 66, Total Protein 7.1, Albumin 3.3, Albumin/Globulin Ratio 0.9L, Lipase 39L, Human Chorionic Gonadotropin, Qual NEGATIVE 12/15/20 15:07: Coronavirus (COVID-19)(PCR) NEGATIVE, Influenza Type A (RT-PCR) NEGATIVE, Influenza Type B (RT-PCR) NEGATIVE, Respiratory Syncytial Virus (PCR) NEGATIVE CBC/BMP Laboratory Tests 12/15/20 03:40 Microbiology Microbiology 12/15/20 Blood Culture, Received Pending 12/15/20 Blood Culture, Received Pending Allergies Coded Allergies: No Known Allergies (Unverified , 12/13/20) Home Medications No Active Prescriptions or Reported Meds SARKIS CARSON MD December 15, 2020 17:09
[2020-12-15] MEDS ORDERED: LABETALOL 100MG/20ML VIAL As Ordered ONE (17:26)
[2020-12-15] MEDS ORDERED: HYDROMORPHONE HCL 0.5 MG/ 0.5 ML SYRINGE (J1170 PER 1) IV PRN (18:20)
[2020-12-15] MEDS ORDERED: fentaNYL 100 MCG/2 ML INJECTION (J3010) IV PRN (18:20)
[2020-12-15] MEDS ORDERED: LR 1,000 ML IV SCH (18:20)
[2020-12-15] MEDS ORDERED: oxyCODONE 5MG TAB PO PRN (18:20)
--- NOTE | 2020-12-15 18:26 | ROOR ---
Patient Name: Karen Madrigal Procedure Date: 12/15/2020 5:24 PM Date of : 1995 Age: 25 Room: Main OR Gender: Female Note Status: Finalized Procedure: ERCP Indications: Treatment of bile leak Providers: Bj Valentin MD Referring MD: 2. Inpatient 2. Inpatient, Chad Bell MD Requesting Provider: Medicines: Monitored Anesthesia Care Complications: No immediate complications. Procedure: Pre-Anesthesia Assessment: - Prior to the procedure, a History and Physical was performed, and patient medications and allergies were reviewed. The patient is competent. The risks and benefits of the procedure and the sedation options and risks were discussed with the patient. All questions were answered and informed consent was obtained. Patient identification and proposed procedure were verified by the physician, the nurse and the anesthesiologist in the procedure room. Mental Status Examination: normal. Airway Examination: normal oropharyngeal airway and neck mobility. Respiratory Examination: clear to auscultation. CV Examination: normal. Prophylactic Antibiotics: The patient does not require prophylactic antibiotics. Prior Anticoagulants: The patient has taken no previous anticoagulant or antiplatelet agents. ASA Grade Assessment: II - A patient with mild systemic disease. After reviewing the risks and benefits, the patient was deemed in satisfactory condition to undergo the procedure. The anesthesia plan was to use monitored anesthesia care (MAC). Immediately prior to administration of medications, the patient was re-assessed for adequacy to receive sedatives. The heart rate, respiratory rate, oxygen saturations, blood pressure, adequacy of pulmonary ventilation, and response to care were monitored throughout the procedure. The physical status of the patient was re-assessed after the procedure. The Duodenoscope was introduced through the mouth, and advanced to the duodenum and used to inject contrast into the bile duct. The ERCP was accomplished without difficulty. The patient tolerated the procedure well. Findings: The painter shipyard film was normal. The esophagus was successfully intubated under direct vision. The scope was advanced to a normal major papilla in the descending duodenum without detailed examination of the pharynx, larynx and associated structures, and upper GI tract. The upper GI tract was grossly normal. A short 0.021 inch Jagwire was passed into the biliary tree. The short-nosed traction sphincterotome was passed over the guidewire and the bile duct was then deeply cannulated. Contrast was injected. I personally interpreted the bile duct images. Ductal flow of contrast was adequate. Image quality was adequate. Contrast extended to the entire biliary tree. Extravasation of contrast originating from the cystic duct was observed. The main bile duct was not dilated. The largest diameter was 4 mm. Biliary sphincterotomy was made with a monofilament traction (standard) sphincterotome using ERBE electrocautery. There was no post-sphincterotomy bleeding. One 7 Fr by 7 cm plastic stent with a single external flap and a single internal flap was placed into the common bile duct. Bile flowed through the stent. The stent was in good position. Cholangiogram during the procedure did not show any filling defects. Pancreatic duct was neither cannulated nor opacified. Impression: - A bile leak was found. - A biliary sphincterotomy was performed. - One plastic stent was placed into the common bile duct. Recommendation: - [facility]. - Avoid aspirin and nonsteroidal anti-inflammatory medicines. - Patient has a contact number available for emergencies. The signs and symptoms of potential delayed complications were discussed with the patient. Return to normal activities tomorrow. Written discharge instructions were provided to the patient. - Clear liquid diet today, then advance as tolerated to high fiber diet and low fat diet. - Recommend an oral antibiotic for 5 days. - Telephone GI clinic if symptomatic. - Return to this GI lab for stent removal at [facility] endoscopy in 6 weeks. - Telephone GI clinic to schedule appointment in [facility] (address [address], [address], [place], [address]) in 4 -- 6 weeks. Please call GI clinic @ [phone] for apppointment date and time. - Return to primary care physician. Procedure Code(s): --- Professional --- 87519, Endoscopic retrograde cholangiopancreatography (ERCP); with placement of endoscopic stent into biliary or pancreatic duct, including pre- and post-dilation and guide wire passage, when performed, including sphincterotomy, when performed, each stent [id number], 26, Endoscopic catheterization of the biliary ductal system, radiological supervision and interpretation Diagnosis Code(s): --- Professional --- K83.9, Disease of biliary tract, unspecified K83.8, Other specified diseases of biliary tract CPT copyright 2019 [employer]. All rights reserved. The codes documented in this report are preliminary and upon dehydrator operator review may be revised to meet current compliance requirements. Bj Valentin MD Bj Valentin MD 12/15/2020 6:25:41 PM Electronically signed by Bj Valentin MD Number of Addenda: 0 Note Initiated On: 12/15/2020 5:24 PM Estimated Blood Loss: Estimated blood loss: none.
--- NOTE | 2020-12-15 18:34 | REP ---
INDICATION: BILE LEAK. COMPARISON: None. TECHNIQUE: Multiple C-arm views during ERCP. FINDINGS: Common bile duct is catheterized and contrast is injected. Catheter manipulation is performed. There is placement of a biliary stent in the distal common bile duct which crosses the ampulla of Vater. IMPRESSION: 26 seconds of fluoroscopy time was utilized. <Electronically signed by Walt Boateng > 12/15/20 [id number]
[2020-12-15 19:00] VITALS: BP 148/92
[2020-12-15 20:00] VITALS: BP 143/88
--- NOTE | 2020-12-15 20:22 | ECGEPIP ---
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
[2020-12-15 20:30] VITALS: BP 142/87
[2020-12-15 21:30] VITALS: BP 137/88
[2020-12-15 22:30] VITALS: BP 118/75
[2020-12-15 23:30] VITALS: BP 120/73
[2020-12-16] MEDS: LR 1,000 ML IV SCH ×2 (00:50→09:28)
[2020-12-16] MEDS: AMPICILLIN SOD/SULBACTAM SOD 3 GM in D5W MINI-BAG PLUS 100 ML IV SCH ×3 (04:40→18:19)
[2020-12-16] MEDS: KETOROLAC 30 MG/ML 1ML VIAL IV PRN (04:49)
[2020-12-16 06:00] VITALS: BP 130/81
[2020-12-16] MEDS: PANTOPRAZOLE 40MG VIAL (C9113 PER 1) IV SCH (09:27)
[2020-12-16 09:51] VITALS: BP 154/95
[2020-12-16 14:00] VITALS: BP 148/88
[2020-12-16] MEDS ORDERED: AUGM875T28 PO (21:55)
--- NOTE | 2020-12-17 10:44 | DSES ---
DISCHARGE SUMMARY DATE OF ADMISSION: 12/15/2020 DATE OF DISCHARGE: 12/16/2020 ADMISSION DIAGNOSIS: Bile leak. DISCHARGE DIAGNOSIS: Bile leak. HOSPITAL COURSE: Patient is a 25-year-old female who underwent robotic cholecystectomy on 12/13/2020. On the morning of 12/15, she woke up, had sudden onset of right upper quadrant pain. She came to the Emergency Room, had a CT scan showing some fluid in the gallbladder fossa. She underwent an ERCP and stent placement, and found to have a cystic duct stump leak. Leak was small and it was relieved by placement of the stent. Her pain is improved. She is tolerating diet. There is no need at this point for any drain placement outside of the biliary tree. The plan is to discharge her home. She has pain meds already. We will send her home with antibiotics for a few days and she will follow-up with Dr. Valentin and myself in the office.
== END 2020-12-16 19:10 | disposition home or self-care (01) | DRG 252 ==
LOC: M ED 03:03 → M ED INP 14:46 → M MS5PR 19:00
PROVIDERS: ADMIT Surgery; ATTEND Surgery
PROC: 0F998ZZ Drainage of Common Bile Duct, Via Natural or Artificial Opening Endoscopic (ICD-10-PCS; 2020-12-15)
PROC: 0F798DZ Dilation of Common Bile Duct with Intraluminal Device, Via Natural or Artificial Opening Endoscopic (ICD-10-PCS; principal; 2020-12-15 16:00)
DX: K91.89 Other postprocedural complications and disorders of digestive system (principal); K83.8 Other specified diseases of biliary tract; Y83.6 Removal of other organ (partial) (total) as the cause of abnormal reaction of the patient, or of later complication, without mention of misadventure at the time of the procedure; Z20.822 Contact with and (suspected) exposure to COVID-19

== ENCOUNTER 2020-12-18 16:04 | Emergency (ER) | payer OTHER ==
[~2020-12-18] VITALS: Ht 160 cm; Wt 100.3 kg
[~2020-12-18 16:04] MED LIST changes: +AUGM875T28 PO
[2020-12-18] MEDS ORDERED: HYDR-3713 (16:15)
[2020-12-18] MEDS ORDERED: AMOX875T2 (16:15)
[2020-12-18] MEDS ORDERED: GI COCKTAIL 50ML BTL(HYOSCYAMINE/MAALOX/LIDOCAINE VISCOUS)(1:3:1) PO ONE (16:40)
[2020-12-18] MEDS ORDERED: ONDANSETRON 4MG/2ML VIAL IV ONE (16:40)
[2020-12-18] MEDS ORDERED: NS 1,000 ML IV ONE (16:40)
[2020-12-18 17:03] LABS: BASO % 0.2 % (0.0-1.0); EOS # 0.3 10^3/uL (0.0-0.5); HEMATOCRIT 37.6 % (36.0-47.0); HEMOGLOBIN 12.1 g/dl (12.0-15.5); LYMPH # 2.4 10^3/uL (1.5-5.0); LYMPH % 18.5 % (24.0-44.0); MEAN CORPUSCULAR HEMOGLOBIN 26.4 pg (27.0-33.0); MEAN CORPUSCULAR HGB CONC 32.2 g/dl (32.0-36.5); MEAN CORPUSCULAR VOLUME 81.9 fl (80.0-96.0); MONO # 0.5 10^3/uL (0.0-0.8); MONO % 3.9 % (2.0-8.0); NEUTROPHILS # 9.9 10^3/uL (1.5-8.5); PLATELET COUNT, AUTOMATED 418 10^3/uL (150-450); RED BLOOD COUNT 4.59 10^6/uL (4.00-5.40); WHITE BLOOD COUNT 13.2 10^3/uL (4.0-10.0)
[2020-12-18 17:30] LABS: ALBUMIN 3.5 GM/DL (3.2-5.2); BILIRUBIN,DIRECT 0.3 MG/DL (0.0-0.2); BILIRUBIN,TOTAL 0.7 MG/DL (0.2-1.0); TOTAL PROTEIN 7.6 GM/DL (6.4-8.2)
--- NOTE | 2020-12-18 17:53 | REP ---
INDICATION: upper Abdominal Pain; assess for free air. COMPARISON: None. FINDINGS: Supine and upright views of the abdomen show the intestinal gas pattern to be nonspecific. Gas and stool is seen throughout the colon within the rectosigmoid region. The organ silhouettes insofar as delineated appear unremarkable. No abdominal calcific densities are seen within the abdomen or pelvis. The accompanying single frontal view of the chest shows no free subdiaphragmatic air, cardiomegaly, infiltrates or effusions. There is a biliary stent in place. IMPRESSION: Nonspecific intestinal gas pattern. <Electronically signed by Michael Lau > 12/18/20 [id number]
[2020-12-18] MEDS ORDERED: ISOVUE-370 76% 100ML VIAL As Ordered ONE (18:15)
[2020-12-18] MEDS ORDERED: MORPHINE 4 MG/ML 1ML VIAL/SYRINGE (J2270) IV ONE ×2 (18:15→21:00)
--- NOTE | 2020-12-18 20:42 | REPVR ---
PROCEDURE INFORMATION: Exam: CT Abdomen And Pelvis With Contrast Exam date and time: 12/18/2020 7:32 PM Age: 25 years old Clinical indication: Abdominal pain; Localized; Upper; Additional info: Upper abdominal pain; S/P junior/biliary stent TECHNIQUE: Imaging protocol: Computed tomography of the abdomen and pelvis with contrast. Radiation optimization: All CT scans at this facility use at least one of these dose optimization techniques: automated exposure control; mA and/or kV adjustment per patient size (includes targeted exams where dose is matched to clinical indication); or iterative reconstruction. Contrast material: ISOVUE 370; Contrast volume: 100 ml; Contrast route: INTRAVENOUS (IV); COMPARISON: CT ABD/PEL W/IV CONTRAST ONLY 12/15/2020 4:42 AM FINDINGS: Lungs: Bibasilar atelectatic changes, left side greater than right. Liver: The liver measures 25.4 cm in the craniocaudad dimension, consistent with hepatomegaly. There is hypodense fatty infiltration of the liver. Fatty sparing is identified within the liver adjacent to the gallbladder fossa. There is a small area of hypodensity within the medial segment of the left hepatic lobe measuring 1.1 cm in diameter, likely contributed by fatty infiltration. A hypodense lesion cannot be excluded. This has mildly decreased in size compared to the prior study. Gallbladder and bile ducts: The gallbladder is absent. There is stranding and fluid within the gallbladder fossa, which extends inferiorly. This fluid is seen adjacent to the duodenum and right hemicolon. This fluid has progressed compared to prior study. Differential considerations include infection, postoperative change, and biliary leak/biloma. A new common bile duct stent is visualized. Pancreas: Unremarkable. No ductal dilation. Spleen: Unremarkable. No splenomegaly. Adrenal glands: No mass. Kidneys and ureters: Unremarkable as visualized. No hydronephrosis. Stomach and bowel: Evaluation of bowel is limited by the absence of oral contrast. No bowel obstruction. Wall thickening of the distal stomach and proximal duodenum, suggestive of incomplete distension or gastroenteritis. Appendix: No evidence of appendicitis. Intraperitoneal space: Free fluid is visualized within the pelvis. This has progressed. A few small foci of free air are identified within the upper abdomen, with overall mild improvement compared to the prior study. Vasculature: No abdominal aortic aneurysm. Lymph nodes: No enlarged lymph nodes. Urinary bladder: Unremarkable as visualized. Reproductive: Unremarkable as visualized. Bones/joints: Degenerative changes are identified within the lower thoracic spine. Disc protrusions are identified at L4-L5 and L5-S1. Soft tissues: A few small foci of gas are identified within the periumbilical soft tissues. This has improved. There is an area of abnormal density within the right ventral abdominal subcutaneous tissues, similar to the prior study. This can be contributed by postoperative change. Eventration of the ventral abdominal wall. IMPRESSION: 1. There is hypodense fatty infiltration of the liver. Hepatomegaly. 2. The gallbladder is absent. There is stranding and fluid within the gallbladder fossa, which extends inferiorly. This fluid has progressed compared to prior study. Differential considerations include infection, postoperative change, and biliary leak/biloma. Correlation with a hepatobiliary nuclear scintigraphy is recommended as well as clinical correlation. 3. Free fluid is visualized within the pelvis. This has progressed. 4. A few small foci of gas are identified within the periumbilical soft tissues. This has improved. 5. A few small foci of free air are identified within the upper abdomen, with overall mild improvement compared to the prior study. 6. A new common bile duct stent is visualized. 7. Wall thickening of the distal stomach and proximal duodenum, suggestive of incomplete distension or gastroenteritis. 8. Additional findings described above. Electronically signed by: Pillo Wilson On 12/18/2020 20:41:59 PM
[2020-12-18] MEDS ORDERED: PIPERACILLIN/TAZOBACTAM SOD 3.375 GM in D5W MINI-BAG PLUS 50 ML IV ONE (21:00)
[2020-12-18] MEDS ORDERED: LABETALOL 100MG/20ML VIAL IV STA (21:00)
[2020-12-18 21:22] VITALS: BP 172/117
[2020-12-18] MEDS ORDERED: ONDA4TAB6 PO (22:01)
[2020-12-18] MEDS ORDERED: ONDANSETRON 4 MG ORAL DISINTEGRATING TAB PO ONE (22:05)
[2020-12-18 22:12] VITALS: BP 146/99
[2020-12-18 22:14] LABS: RSV AMPLIFICATION NEGATIVE (NEGATIVE)
--- NOTE | 2020-12-19 08:12 | ED PDOC ---
Post-Departure Follow-Up radiology report faxed to Za Reilly MD December 19, 2020 08:12
== END 2020-12-18 22:10 | disposition home or self-care (01) ==
LOC: M ED 16:04
DX: G89.18 Other acute postprocedural pain (principal); R10.9 Unspecified abdominal pain; R11.2 Nausea with vomiting, unspecified; Z96.89 Presence of other specified functional implants; K76.0 Fatty (change of) liver, not elsewhere classified; M51.26 Other intervertebral disc displacement, lumbar region
CPT/HCPCS: 74021; 74177; 80047; 80076; 83605; 83690; 85025; 87631; 93041; 96361; 96365; 96375; 99285; J2270; J2405; J2543; Q0162; Q9967

== ENCOUNTER 2023-02-04 16:09 | Emergency (ER) | payer OTHER ==
[~2023-02-04] VITALS: Ht 160 cm; Wt 96.8 kg
[~2023-02-04 16:09] MED LIST changes: +AMOX875T2; +HYDR-3713; +ONDA4TAB6 PO
[2023-02-04 17:29] LABS: BASO % 0.3 % (0.0-1.0); EOS # 0.9 10^3/uL (0.0-0.5); EOS % 5.8 % (0.0-3.0); LYMPH # 1.7 10^3/uL (1.5-5.0); LYMPH % 10.6 % (24.0-44.0); MEAN CORPUSCULAR HEMOGLOBIN 27.8 pg (27.0-33.0); MEAN CORPUSCULAR HGB CONC 33.3 g/dl (32.0-36.5); MEAN CORPUSCULAR VOLUME 83.5 fl (80.0-96.0); MONO # 0.6 10^3/uL (0.0-0.8); MONO % 3.8 % (2.0-8.0); NEUTROPHILS # 12.6 10^3/uL (1.5-8.5); NEUTROPHILS % 79.2 % (36.0-66.0); PLATELET COUNT, AUTOMATED 375 10^3/uL (150-450); RED BLOOD COUNT 5.39 10^6/uL (4.00-5.40); WHITE BLOOD COUNT 15.9 10^3/uL (4.0-10.0)
[2023-02-04 17:34] LABS: LIPASE 25 U/L (12-53)
[2023-02-04 17:36] LABS: ALBUMIN 3.7 G/DL (3.2-5.2); ALKALINE PHOSPHATASE 74 U/L (46-116); ALT/SGPT 47 U/L (7.0-40); AST/SGOT 48 U/L (<34); BILIRUBIN,DIRECT 0.4 MG/DL (<0.4); BILIRUBIN,TOTAL 0.7 MG/DL (0.3-1.2); BLOOD UREA NITROGEN 9 MG/DL (9-23); CALCIUM LEVEL 8.7 MG/DL (8.5-10.1); CARBON DIOXIDE LEVEL 20 MMOL/L (20-31); CHLORIDE LEVEL 110 MMOL/L (98-107); CREATININE FOR GFR 0.54 MG/DL (0.55-1.30); GLOMERULAR FILTRATION RATE > 60.0 (>60); GLUCOSE, FASTING 91 MG/DL (60-100); POTASSIUM SERUM 3.9 MMOL/L (3.5-5.1); SODIUM LEVEL 139 MMOL/L (136-145); TOTAL PROTEIN 7.5 G/DL (5.7-8.2)
[2023-02-04 17:40] LABS: HCG, SERUM QUALITATIVE NEGATIVE (NEGATIVE)
[2023-02-04] MEDS ORDERED: MAALOX 30 ML SUSP *UDC PO ONE (18:05)
[2023-02-04] MEDS ORDERED: MORPHINE 4 MG/ML 1ML VIAL IV ONE (18:05)
[2023-02-04] MEDS ORDERED: ONDANSETRON 4MG 2ML VIAL IV ONE (18:05)
[2023-02-04] MEDS ORDERED: ISOVUE-370 76% 100ML VIAL As Ordered ONE (18:07)
[2023-02-04] MEDS ORDERED: OMEP40CA4 PO (18:59)
[2023-02-04 19:05] VITALS: BP 130/87; TEMP 98.2; O2SAT 99
== END 2023-02-04 19:10 | disposition home or self-care (01) ==
LOC: M ED 16:09
DX: R10.13 Epigastric pain (principal); R19.7 Diarrhea, unspecified
CPT/HCPCS: 74177; 80048; 80076; 83690; 84703; 85025; 96374; 96375; 99284; J2405; Q9967